=== PATIENT | male | born 1970 | race Caucasian/White ===

== ENCOUNTER 2024-09-15 07:20 | Outpatient (AMB) | payer OTHER, MEDICARE, SELFPAY ==
--- NOTE | 2024-09-15 07:32 | A.OFFVIS_ITS ---
Vital Signs 09/15/24 07:34 Height 5 ft 5 in Weight 173 lb BMI 28.8 BP 98/70 Blood Pressure Location Rt brachial Position Sitting Intake Visit Reasons: ENP-Not use cpap 5yr + like to restart- LVM Intake Note: Patient presents for NORI Allergies amlodipine Allergy (Verified 09/15/24 07:34) Chest Pain Iodinated Contrast Media Allergy (Verified 09/15/24 07:34) Rash Medication List - Last Reconciled 09/15/24 by Eli Hodge MD acetaminophen (Tylenol Extra Strength) 500 mg PO Q4H PRN aspirin 81 mg PO DAILY dulaglutide (Trulicity) mg subcut duloxetine 20 mg PO BID empagliflozin (Jardiance) 25 mg PO DAILY gabapentin 800 mg PO TID hydrochlorothiazide 25 mg PO DAILY lisinopril 40 mg PO DAILY omega-3 fatty acids 1,000 mg PO BID HPI Comments Details: 53y/o comes for sleep evaluation . Main complaints-snoring, difficulty sleeping Sleep questionnaire- Difficulty falling asleep-yes Difficulty staying asleep-yes Number of arousals-4 Snoring-yes Witnessed apneas-no Gasping arousals-yes Nocturia-no GERD-no Vivid dreams-no Acting out dreams no Abnormal behavior in sleep-no ABnormal movements in sleep-yes Morning headaches-no Excessive daytime sleepiness-yes Daytime naps- yes restless legs- yes Hallucinations- no sleep paralysis- /no Drop attacks- /no Sleep study-yes more than 10 years ago Results AHI O2 CPAP no Sleep Hygiene- Sleep time-11pm Wake time -multiple arousals 7am coffee/stimulant use-2 Phone Electronics use-frequent Exercise- no Bedroom comfort- yes [facility] Medical History (Updated 09/15/24 @ 07:52 by Eli Hodge MD) Restless legs syndrome (RLS) Hypersomnia Snoring Severe obesity (BMI 35.0-35.9 with comorbidity) NORI (obstructive sleep apnea) Lumbosacral pain, chronic Hypertension GERD (gastroesophageal reflux disease) Type 2 diabetes mellitus Depression Carpal tunnel syndrome Chondral defect of left tibial plateau Cervical myelopathy Surgical History H/O esophagogastroduodenoscopy H/O cervical discectomy H/O colonoscopy Family History Maternal Grandmother CAD (coronary artery disease) Paternal Grandfather CAD (coronary artery disease) Physical Exam Vital Signs: Last Vital Signs BP 98/70 09/15/24 07:34 BMI result Body Mass Index 28.8 Const General: cooperative, healthy appearing, comfortable and no acute distress Nutritional Appearance: overweight Orientation/consciousness: patient oriented x3 Eyes Pupils: Equal, round and reactive pupils present Neuro Other: Mallampatti grade 4 General: patient oriented x3, tone normal, moves all extremities and no focal motor deficits Cranial nerves: Yes Facial sensation intact/muscles of mastication intact, Yes Equal, round and reactive pupils present, Yes Bilaterally intact EOM present, Yes Nystagmus not present, Yes Normal facial strength present and Yes Midline tongue present Cognition (Neuro): normal cognition Gait exam (Neuro): Antalgic gait present Motor exam (neuro): 5/5 motor strength present throughout and Normal motor muscle tone present throughout Deep tendon reflexes (DTR's): Right triceps reflex intensity grade: 2+, Left triceps reflex intensity grade: 2+, Rt Biceps (C5, C6): 2+, Left biceps reflex intensity grade: 2+, Right brachioradialis reflex intensity grade: 2+, Left brachioradialis reflex intensity grade: 2+, Right patellar reflex intensity grade: 2+ and Left patellar reflex intensity grade: 2+ Assessment & Plan Assessment & Plan (1) Snoring: Code(s): R06.83 - Snoring Category: Medical (2) Hypersomnia: Code(s): G47.10 - Hypersomnia, unspecified Category: Medical (3) Restless legs syndrome (RLS): Code(s): G25.81 - Restless legs syndrome Category: Medical Plan I will reevaluate him with a sleep study for possibel sleep apnea and periodic limb movement disorder CBC CMP VIT B12 TSH ferritin levels Orders: Orders RT PSG in-lab sleep study Today G2 - Restless legs syndrome, G47.10 - Hypersomnia, unspecified, R06.83 - Snoring TSH reflex Free T4 Today G2 - Restless legs syndrome Vitamin B12 and Folate Today - Restless legs syndrome Ferritin Today G2 - Restless legs syndrome Vitamin D 25-OH (D2 and D3) Today G25.81 - Restless legs syndrome Comprehensive Met. Panel Today G2.81 - Restless legs syndrome Complete Blood Count Auto Diff Today G25.81 - Restless legs syndrome Coding Level of Care Code New Pt Level 4 (04744) Complex EM visit Add On G2211 Diagnoses Snoring R06.83 Hypersomnia G47.10 Restless legs syndrome (RLS) G25.81 [place] Sleepiness Scale Questions Sitting and reading: slight chance of dozing Watching TV: moderate chance of dozing Sitting inactive in a theater, movie etc.: moderate chance of dozing As a passenger in a car for an hour without break: high chance of dozing Lying down in the afternoon when circumstances permit: high chance of dozing Sitting and talking to someone: would never doze Sitting quietly after lunch without alcohol: slight chance of dozing In a car, while stopped for a few minutes in the traffic: would never doze ESS < 10: normal, ESS > 12: pathologic: 12
[2024-09-15 07:34] VITALS: BP 98/70; BMI 28.8
== END 2024-09-15 07:59 | disposition home or self-care (01) ==
PROVIDERS: PCP Family Medicine; Visit Provider Psychiatry & Neurology Neurology
DX: R06.83 Snoring (principal); G47.10 Hypersomnia, unspecified; G25.81 Restless legs syndrome
CPT/HCPCS: 99204

== ENCOUNTER → 2024-09-15 07:20 | Outpatient (BNVA) | payer OTHER, MEDICARE, SELFPAY | PROVIDERS: PCP Family Medicine; Visit Provider Psychiatry & Neurology Neurology ==

== ENCOUNTER → 2024-10-10 20:30 | Outpatient (REF) | payer OTHER, MEDICARE, SELFPAY | LOC: HO.SL 20:30 | PROVIDERS: PCP Family Medicine; Visit Provider Psychiatry & Neurology Neurology | DX: G25.81 Restless legs syndrome (principal); G47.10 Hypersomnia, unspecified; R06.83 Snoring | CPT/HCPCS: 95810 ==

== ENCOUNTER → 2024-10-10 21:18 | Outpatient (BNV) | payer OTHER, MEDICARE, SELFPAY | PROVIDERS: PCP Family Medicine; Visit Provider Psychiatry & Neurology Neurology | DX: G47.10 Hypersomnia, unspecified (principal); R06.83 Snoring | CPT/HCPCS: 95810 ==

== ENCOUNTER 2024-12-19 08:48 | Outpatient (AMB) | payer OTHER, MEDICARE, SELFPAY ==
--- NOTE | 2024-12-19 08:59 | MHC.OFFVIS ---
Vital Signs 12/19/24 09:01 Height 5 ft 5 in Weight 169 lb BMI 28.1 BP 110/80 Blood Pressure Location Lt brachial Position Sitting Pulse 63 Pulse Source Pulse Oximeter Pulse Oximetry (%) 96 Oxygen Delivery Method Room Air Intake Visit Reasons: follow up Sleep Intake Note: Patient presents for a 3 mo fu for sleep disorder. [employer] Crewmember Required: Yes [employer] Crewmember Language: [employer] Operator Services: [employer] Crewmember Present [employer] Crewmember Name: Cezar [id number] Accompanied by: Spouse Allergies amlodipine Allergy (Verified 12/19/24 09:00) Chest Pain Iodinated Contrast Media Allergy (Verified 12/19/24 09:00) Rash Medication List - Last Reconciled 12/19/24 by Juanito Beltran PA-C acetaminophen (Tylenol Extra Strength) 500 mg PO Q4H PRN aspirin 81 mg PO DAILY dulaglutide (Trulicity) mg subcut duloxetine 20 mg PO BID empagliflozin (Jardiance) 25 mg PO DAILY gabapentin 800 mg PO TID hydrochlorothiazide 25 mg PO DAILY lisinopril 40 mg PO DAILY omega-3 fatty acids 1,000 mg PO BID HPI Comments Details: 54 y/o male comes for sleep evaluation. He goes to bed at 10pm, gets up at 3am for the bathroom, and gets up at 5am for the day. 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. R. arm goes numb at night only. He c/o snoring, difficulty with sleep and excessive daytime sleepiness. RLS: He has pain bilateral in knee, limps when walking He continues to have bilateral numbness in the feet and pain, all the time, when walking sitting, getting up. Denies tingling, radiating sensations. [facility] labs - were all normal. He had 3 episodes of syncope in Oct 2024 around noon, he was having a bowel movement,and collapsed for < 5min on each occasion. He states he was nauseas, no vomiting, did not bit his tongue, no vision loss or urinary incontinence, he was sweating and taken to [facility] by ambulance. EEG was done at [facility], no seizure activity. He denies family h/o seizures. He is not driving. He says his mood is good, he eats well and goes to sleep on time and has minimal stress as well as avoids triggers. He says his memory is okay, but his has to remind him of daily tasks, and he has VNA visits. [facility] Medical History Restless legs syndrome (RLS) Hypersomnia Snoring Severe obesity (BMI 35.0-35.9 with comorbidity) NORI (obstructive sleep apnea) Lumbosacral pain, chronic Hypertension GERD (gastroesophageal reflux disease) Type 2 diabetes mellitus Depression Carpal tunnel syndrome Chondral defect of left tibial plateau Cervical myelopathy Surgical History H/O esophagogastroduodenoscopy H/O cervical discectomy H/O colonoscopy Family History Maternal Grandmother CAD (coronary artery disease) Paternal Grandfather CAD (coronary artery disease) Review of Systems Const All systems reviewed & are unremarkable except as noted in HPI and below Physical Exam Vital Signs: Last Vital Signs Pulse 63 12/19/24 09:01 BP 110/80 12/19/24 09:01 Pulse Ox 96 12/19/24 09:01 Oxygen Delivery Method Room Air 12/19/24 09:01 BMI result Body Mass Index 28.1 Const General: cooperative, comfortable and no acute distress Nutritional Appearance: overweight Orientation/consciousness: patient oriented x3 HEENT Face and sinus: Yes normal facial exam and Yes face symmetric Eyes Pupils: Equal, round and reactive pupils present Neck Neck: Yes other (ROM is limited on Extension and Flexion and Rotation l/r) Resp Effort & Inspection: normal respiratory effort and able to speak in complete sentences Neuro Other: Mallampatti grade 4 General: patient oriented x3, tone normal, moves all extremities and no focal motor deficits Cranial nerves: Yes Facial sensation intact/muscles of mastication intact, Yes Equal, round and reactive pupils present, Yes Normal accommodation reflex present, Yes Bilaterally intact EOM present, Yes Nystagmus not present, Yes Normal facial strength present, Yes Midline tongue present and Yes Other cranial nerve findings present (has pain on shoulder shrug) Cognition (Neuro): normal cognition Gait exam (Neuro): Antalgic gait present Motor exam (neuro): Normal motor muscle tone present throughout and Abnormal motor strength present (4/5 bilaterally LE) Deep tendon reflexes (DTR's): Right triceps reflex intensity grade: 2+, Left triceps reflex intensity grade: 2+, Rt Biceps (C5, C6): 2+, Left biceps reflex intensity grade: 2+, Right brachioradialis reflex intensity grade: 2+, Left brachioradialis reflex intensity grade: 2+, Right patellar reflex intensity grade: 2+ and Left patellar reflex intensity grade: 2+ Psych Appearance: grossly normal Mental Status: mental status grossly normal Speech and movement: Normal speech and movement present Affect: normal affect Insight: Good insight present (Psych) Judgement: Good judgement present (Psych) Results Reviewed Results Reviewed: Labs [facility] Surgical note [facility] anterior cervical discectomy 09/19 2020 C2/C3 interbody device fusion ED note : 11/06/2024 - dizziness Troponins 11, EKG No ST - T wave changes, most likely vasovagal syncope. Assessment & Plan Assessment & Plan (1) Snoring: Code(s): R06.83 - Snoring Category: Medical (2) Hypersomnia: Code(s): G47.10 - Hypersomnia, unspecified Category: Medical (3) Restless legs syndrome (RLS): Code(s): G25.81 - Restless legs syndrome Category: Medical (4) Bilateral numbness and tingling of arms and legs: Code(s): R20.0 - Anesthesia of skin; R20.2 - Paresthesia of skin Category: Medical (5) Radiculopathy affecting upper extremity: Code(s): M54.10 - Radiculopathy, site unspecified Category: Medical Plan Normal HST, 0 PLMDs, discussed PSG and patient education provided for sleep hygiene and seizure precautions. Sleep Hygiene: Sleep in a dark room, no devices in bed, fluids should be limited two hours prior to sleep, limit caffeine after 4pm. May read and use redlight therapy as needed. Anxiety? stress- eating meals, sleeping on time, and low intenstitiy exercises. Bilateral numbness in arms: and R. Leg EMG evaluate pinched nerves, radiculopathy? Neuropathy? Restless Leg Syndrome/ Primary Leg movement disorder: PSG is normal not significant for RLS/ PLMD. Syncope? LOC ? EEG: Keppra? in future after evaluation with EEG. Will f/u with records from [facility] : CBC CMP VIT B12 TSH ferritin levels / surgical notes X3 and EEG report from ED. Avoid triggers, get a good night of 8 hours of sleep, eat a well balanced diet, and walking daily or exercise as tolerable. Orders: Orders EEG electroencephalogram Today R40.20 - Unspecified coma, R55 - Syncope and collapse NE electromyogram (EMG) Today R20.0 - Anesthesia of skin, R20.2 - Paresthesia of skin Coding Level of Care Code New Pt Level 4 (26719) Diagnoses Snoring R06.83 Hypersomnia G47.10 Restless legs syndrome (RLS) G25.81 Bilateral numbness and tingling of arms and legs R20.0; R20.2 Radiculopathy affecting upper extremity M54.10
[2024-12-19 09:01] VITALS: BP 110/80; PULSE 63; O2SAT 96; BMI 28.1
--- OUTSIDE RECORDS SUMMARY | 2024-12-19 13:05 | XMS_ITS | Clinical Summary ---
Author Organization [facility] Address [address] [place] [address] Care Team Providers Care Rental Representative Name Role Phone Unavailable Primary Care Provider Unavailabl e Social History Tobacco Use Types Packs/Day Years Used Date Smoking Tobacco: Never Assessed Sex and Gender Information Value Date Recorded Sex Assigned at Not on file Gender Identity Not on file Sexual Orientation Not on file Plan of Treatment Health Maintenance Due Date Last Done Comments DTaP,Tdap,and Td Vaccines (1 - Tdap) 1991 Hepatitis B Vaccines (1 of 3 - 19+ 3-dose series) 1991 Cholesterol Screening (Lipid Panel) 10/26/2022 Colorectal Cancer Screening: Colonoscopy 10/26/2022 Depression Screening 10/26/2022 HIV Screening 10/26/2022 Hepatitis C Screening 10/26/2022 Social Influencers of Health Screening 10/26/2022 Zoster Vaccines (1 of 2) 2022 COVID-19 Vaccine (2023-2 5 season) 2024 Influenza Vaccine (#1) 2024 HIB Vaccines Aged Out No longer eligi ble based on patient's age to complete this topic HPV Vaccines Aged Out No longer eligi ble based on patient's age to complete this topic Hepatitis A Vaccines Aged Out No long er eligible based on patient's age to complete this topic IPV Vaccines Aged Out No longer eligi ble based on patient's age to complete this topic MMR Vaccines Aged Out No longer eligi ble based on patient's age to complete this topic Meningococcal ACWY Vaccine Aged Out N o longer eligible based on patient's age to complete this topic Pneumococcal Vaccine: Pediat rics (0 to 5 Years) and At-Risk Patients (6 to 64 Years) Aged Out No longer eligible b ased on patient's age to complete this topic RSV Immunization Patients Un donell 20 months Aged Out No longer eligible b ased on patient's age to complete this topic Varicella Vaccines Aged Out No longer eligible based on patient's age to complete this topic
--- OUTSIDE RECORDS SUMMARY | 2024-12-19 13:05 | XMS_ITS ---
Author Name [facility] Organization Unknown History of Medication Use Medication Directions Dispensed Refills Start Date End Date Stat us duloxetine 60 mg capsule,delayed release a ctive lisinopril 40 mg tablet active peg-electrolyte solution 420 gram oral solution 08/04/2024 co mpleted Allergies Allergen Reaction Severity Comment Documented Date Source Statu s AMLODIPINE ENS_AONECT Problems Problem Status Onset Date Problem Type Date of Resoluti on Source Osteoarthritis of left knee joint active 2024-05-05 ProblemAct ENS_AONECT
== END 2024-12-19 09:48 | disposition home or self-care (01) ==
PROVIDERS: PCP Family Medicine; Visit Provider Physician Assistant Medical
DX: R06.83 Snoring (principal); G47.10 Hypersomnia, unspecified; G25.81 Restless legs syndrome; R20.0 Anesthesia of skin; R20.2 Paresthesia of skin; M54.10 Radiculopathy, site unspecified
CPT/HCPCS: 99204

== ENCOUNTER → 2024-12-19 08:48 | Outpatient (BNVA) | payer OTHER, MEDICARE, SELFPAY | PROVIDERS: PCP Family Medicine; Visit Provider Physician Assistant Medical | DX: G25.81 Restless legs syndrome (principal); G47.10 Hypersomnia, unspecified; R06.83 Snoring ==

== ENCOUNTER 2025-03-22 13:28 | Outpatient (REF) | payer OTHER, MEDICARE, SELFPAY ==
--- NOTE | 2025-03-22 13:32 | EMG_ITS ---
Chief complaint: Numbness on both hands and feet. History of diabetes. History of past cervical surgeries x3. Reason for referral: Evaluate for neuropathy Referred by: Juanito SOSA Procedure done: Bilateral upper extremities and lower extremities NCS/EMG Precautions and/or limitations: Previous cervical surgeries Georgian speaking, seen with deaf interpreter. The limb temperature was monitored continuously and remained between 32-36 degrees C during the performance of the NCS. Ulnar motor NCS was performed with moderate elbow flexion between 70-90 degrees, with across-elbow distance of 10 cm. Nerve Conduction Studies Anti Sensory Summary Table ?Stim Site NR Onset (ms) Norm Onset (ms) Peak (ms) Norm Peak (ms) O-P Amp (?V) Norm O-P Amp Site1 Site2 Delta-0 (ms) Dist (cm) Adan (m/s) Norm Adan (m/s) Left Median Anti Sensory (2nd Digit) Wrist ? 2.9 3.7 <3.6 21.2 >10 Wrist 2nd Digit 2.9 14.0 48 Right Median Anti Sensory (2nd Digit) Wrist ? 3.1 3.8 <3.6 8.4 >10 Wrist 2nd Digit 3.1 14.0 45 Right Radial Anti Sensory (Thumb) Forearm ? 1.5 2.0 <3.1 12.9 Forearm Thumb 1.5 0.0 Left Sural Anti Sensory (Lat Mall) Calf ? 2.9 3.6 <4.0 3.5 >5.0 Calf Lat Mall 2.9 14.0 48 Right Sural Anti Sensory (Lat Mall) Calf ? 3.7 4.3 <4.0 1.0 >5.0 Calf Lat Mall 3.7 14.0 38 Left Ulnar Anti Sensory (5th Digit) Wrist ? 2.4 3.2 <3.7 8.3 >15.0 Wrist 5th Digit 2.4 14.0 58 Right Ulnar Anti Sensory (5th Digit) Wrist NR <3.7 >15.0 Wrist 5th Digit 14.0 Motor Summary Table ?Stim Site NR Onset (ms) Norm Onset (ms) O-P Amp (mV) Norm O-P Amp iAmp (mV) Amp (1st) (%) Site1 Site2 Delta-0 (ms) Dist (cm) Adan (m/s) Norm Adan (m/s) Left Median Motor (Abd Poll Brev) Wrist ? 4.1 <3.9 11.8 >4.5 13.5 100.0 Elbow Wrist 3.9 19.5 50 >45 Elbow ? 8.0 11.8 13.3 100.0 Right Median Motor (Abd Poll Brev) Wrist ? 4.3 <3.9 10.5 >4.5 12.8 100.0 Elbow Wrist 4.1 19.0 46 >45 Elbow ? 8.4 10.0 12.3 95.2 Right Peroneal Motor (Ext Dig Brev) Ankle ? 6.0 <4.0 0.8 >2.5 1.0 100.0 Ankle Ext Dig Brev 6.0 0.0 B Fib ? 11.4 5.2 6.6 650.0 B Fib Ankle 5.4 29.0 54 >40 Poplt ? 12.4 5.2 6.9 650.0 Poplt B Fib 1.0 4.5 45 >40 Left Tibial Motor (Abd Brody Brev) Ankle ? 4.4 <5 9.4 >2.5 11.9 100.0 Ankle Abd Brody Brev 4.4 0.0 Knee ? 13.3 8.4 10.3 89.4 Knee Ankle 8.9 36.0 40 >40 Right Tibial Motor (Abd Broyd Brev) Ankle ? 4.5 <5 12.2 >2.5 16.2 100.0 Ankle Abd Brody Brev 4.5 0.0 Knee ? 12.6 7.8 9.2 63.9 Knee Ankle 8.1 36.5 45 >40 Left Ulnar Motor (Abd Dig Minimi) Wrist ? 3.1 <3.0 8.6 >5 10.5 100.0 B Elbow Wrist 3.6 19.0 53 >45 B Elbow ? 6.7 8.1 9.7 94.2 A Elbow B Elbow 1.7 10.0 59 >45 A Elbow ? 8.4 7.2 8.6 83.7 Right Ulnar Motor (Abd Dig Minimi) Wrist ? 3.2 <3.0 9.5 >5 11.5 100.0 B Elbow Wrist 3.6 19.0 53 >45 B Elbow ? 6.8 8.7 10.0 91.6 A Elbow B Elbow 1.3 10.0 77 >45 A Elbow ? 8.1 8.4 9.6 88.4 EMG ?Side Muscle Nerve Root Ins Act Fibs Psw Amp Dur Poly Recrt Int Pat Comment Right 1stDorInt Ulnar C8-T1 Nml Nml Nml Nml Nml 0 Nml Complete Right FlexCarRad Median C6-7 Nml Nml Nml Nml Nml 0 Nml Complete Right Biceps Musculocut C5-6 Nml Nml Nml Nml Nml 0 Nml Complete Right Triceps Radial C6-7-8 Nml Nml Nml Nml Nml 0 Nml Complete Right Deltoid Axillary C5-6 Nml Nml Nml Nml Nml 0 Nml Complete Left 1stDorInt Ulnar C8-T1 Nml Nml Nml Nml Nml 0 Nml Complete Left FlexCarRad Median C6-7 Nml Nml Nml Nml Nml 0 Nml Complete Left Biceps Musculocut C5-6 Nml Nml Nml Nml Nml 0 Nml Complete Left Triceps Radial C6-7-8 Nml Nml Nml Nml Nml 0 Nml Complete Left Deltoid Axillary C5-6 Nml Nml Nml Nml Nml 0 Nml Complete Right AbdHallucis MedPlantar S1-2 Incr 1+ 1+ Nml Nml 0 Nml Complete Right AntTibialis Dp Br Peron L4-5 Nml Nml Nml Nml Nml 0 Nml Complete Right PostTibialis Tibial L5, S1 Nml Nml Nml Nml Nml 0 Nml Complete Right MedGastroc Tibial S1-2 Incr 1+ 1+ Nml Nml 0 Nml Complete Right VastusMed Femoral L2-4 Nml Nml Nml Nml Nml 0 Nml Complete Left AbdHallucis MedPlantar S1-2 Incr 1+ 1+ Nml Nml 0 Nml Complete Left AntTibialis Dp Br Peron L4-5 Nml Nml Nml Nml Nml 0 Nml Complete Left PostTibialis Tibial L5, S1 Nml Nml Nml Nml Nml 0 Nml Complete Left MedGastroc Tibial S1-2 Incr 1+ 1+ Nml Nml 0 Nml Complete Left VastusMed Femoral L2-4 Nml Nml Nml Nml Nml 0 Nml Complete Paraspinal EMG ?Side Muscle Nerve Root Ins Act Fibs Psw Comment Right Lumbar Upper Rami Nml Nml Nml Right Lumbar Mid Rami Nml Nml Nml Right Lumbar Lower Rami Nml Nml Nml Left Lumbar Upper Rami Nml Nml Nml Left Lumbar Mid Rami Nml Nml Nml Left Lumbar Lower Rami Nml Nml Nml FINDINGS: Bilateral median motor nerve showed prolonged distal latency, normal amplitude and normal conduction velocity. Bilateral ulnar motor nerve showed prolonged distal latency, normal amplitude and normal conduction velocity. Right peroneal nerve showed small amplitude distally, with prolonged distal latency. No conduction block across fibular neck. Right median sensory nerve showed prolonged peak latency and small amplitude. Left median sensory nerve showed prolonged peak latency. Right ulnar sensory nerve showed absent response. Left ulnar sensory nerve showed normal peak latency but small amplitude. Right sural nerve showed prolonged peak latencies and small amplitude. Left sural nerve showed small amplitude. All other nerves tested were within normal. Concentric needle EMG was performed in selected muscles of the bilateral upper and lower extremity, and lumbar paraspinals. Study revealed signs of electric abnormalities as shown in the table above. Bilateral mg and AH showed increased insertional activity, PSWs and fibrillations. No denervation seen on lumbar paraspinals. IMPRESSION: 1. This is an abnormal study. 2. 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 3. There is no electrodiagnostic evidence for brachial plexopathy, cervical radiculopathy, lumbosacral plexopathy, or lumbar radiculopathy. Thank you for your kind referral. Sakina Zaragoza MD, OSVALDO Board Certified, [place] [employer] and Rehabilitation (ABPMR) Board Certified, [place] Board [employer] Electrodiagnostic Medicine (ABEM) CODIN 28671 x 4 MTDD
--- OUTSIDE RECORDS SUMMARY | 2025-03-22 14:46 | XMS_ITS | Clinical Summary ---
Author Organization [facility] Address [address] [place] [address] Phone Care Team Providers Care Hardware Installation Coordinator Name Role Phone Physician, No Pcp Primary Care Provider Unavaila ble Allergies Active Allergy Reactions Criticality Noted Date Comments Amlodipine Other 03/07/2025 Iodinated Contrast Media Rash 03/07/2025 Encounters Date Type Department Care Team Description 03/07/2025 8:39 PM EDT - 03/07/2025 9:44 PM EDT Emergency [facility] Emergency [address] [place] [address] Dread Singh MD Chest pain, unspecified type (Primary Dx) Discharge Disposition: Home or Self Care from Last 3 Months Surgical History Surgery Date Site/Laterality Comments NECK SURGERY Medical History Medical History Date Comments Diabetes mellitus (CMS/HCC V24, CMS/HCC V28) Hypertension Arthritis Social History Tobacco Use Types Packs/Day Years Used Date Smoking Tobacco: Never Smokeless Tobacco: Never Tobacco Cessation:Counseling Given: Not Answered Sex and Gender Information Value Date Recorded Sex Assigned at Male 03/07/2025 9:11 PM EDT Legal Sex Male 11:36 PM EST Gender Identity Male 03/07/2025 9:11 PM EDT Sexual Orientation Straight 03/07/2025 9: 11 PM EDT Obstetrics History Last Filed Vital Signs Vital Sign Reading Time Taken Comments Blood Pressure 134/78 03/07/2025 8:49 PM EDT Pulse 62 03/07/2025 8:49 PM EDT Temperature 37 ??C (98.6 ??F) 03/07/2025 8:49 PM EDT Respiratory Rate 22 03/07/2025 8:49 PM EDT Oxygen Saturation 98% 03/07/2025 8:49 PM EDT Inhaled Oxygen Concentration - - Weight 69.2 kg (152 lb 9.6 oz) 03/07/2025 4:31 P M EDT Height 165.1 cm (5' 5 ) 03/07/2025 4:31 PM EDT Body Mass Index 25.39 03/07/2025 4:31 PM EDT Plan of Treatment Health Maintenance Due Date Last Done Comments Diabetes: Annual Foot Exam 1982 Diabetes: Annual Retina Eye Exam 1982 Hepatitis B Vaccines (3 of 3 - 19+ 3-dose series) 06/28/2019 02/28/2019, 12/29/2018 Cholesterol Screening (Lipid Panel) 10/26/2022 Colorectal Cancer Screening: Colonoscopy 10/26/2022 Depression Screening 10/26/2022 HIV Screening 10/26/2022 Hepatitis C Screening 10/26/2022 Medicare Annual Wellness Visit 10/26/2022 Social Influencers of Health Screening 10/26/2022 Pneumococcal Vaccine: 50+ Years (2 of 2 - PCV) 2022 08/08/2019 Zoster Vaccines (1 of 2) 2022 COVID-19 Vaccine (3 - season) 2024 03/29/2021, 03/08/2021 Diabetes: Annual Urine Albumin-Creatinine Ratio (uACR) 03/08/2025 Diabetes: Blood Sugar Control Test (HGBA1C) 03/08/2025 Influenza Vaccine (Season Ended) 2025 10/28/2022, 09/11/2021, 09/06/2020, Additional history exists Diabetes: Annual GFR (Glomerular Filtration Rate) 03/07/2026 03/07/2025 Hypertension/CHF/CAD Annual BMP Blood Test 03/07/2026 03/07/2025 DTaP,Tdap,and Td Vaccines (2 - Td or Tdap) 05/10/2031 05/10/2021 Hepatitis A Vaccines Aged Out 12/29/2018 No long er eligible based on patient's age to complete this topic Pneumococcal Vaccine: Pediatrics (0 to 5 Years) and At-Risk Patients (6 to 64 Years) Aged Out 08/08/2019 No longer eligible based on patient's age to complete this topic HIB Vaccines Aged Out No longer eligi [...] patient's age to complete this topic Meningococcal B Vaccine Aged Out No l onger eligible based on patient's age to complete this topic RSV Immunization Patients Under 20 months Aged Out No longer eligible based on patient's age to complete this topic Varicella Vaccines Aged Out No longer eligible based on patient's age to complete this topic Procedures Procedure Name Priority Date/Time Associated Diagnosis Comments ECG ANNOTATED 03/08/2025 XR CHEST 2 VIEWS STAT 03/07/2025 8:38 PM EDT TROPONIN I HIGH SENSITIVITY STAT 03/07/2025 7:10 PM EDT CBC WITH AUTO DIFFERENTIAL STAT 03/07/2025 4:56 PM EDT B-TYPE NATRIURETIC PEPTIDE STAT 03/07/2025 4:56 PM EDT MAGNESIUM STAT 03/07/2025 4:56 PM EDT LIPASE STAT 03/07/2025 4:56 PM EDT COMPREHENSIVE METABOLIC PANEL STAT 03/07/2025 4:56 PM EDT CBC AND DIFFERENTIAL STAT 03/07/2025 4:56 PM EDT TROPONIN I HIGH SENSITIVITY STAT 03/07/2025 4:56 PM EDT ECG 12-LEAD STAT 03/07/2025 3:59 PM EDT from Last 3 Months Results * ECG-Annotated (03/08/2025) us Provider Onbase MD ECG ORDERABLES Final Result * XR Chest 2 Views (03/07/2025 8:38 PM EDT) Anatomical Region Laterality Modality Body Radiographic Nicolle ging 03/08/2025 8:32 AM EDT Impressions 03/08/2025 8:33 AM EDT Hypoventilatory exam. ??No acute findings. -------- FINAL REPORT -------- Dictated By: Eliu Vazquez Dictated Date: 03/08/2025 08:32 ET Assigned Physician: Eliu Vazquez Reviewed and Electronically Signed By: Eliu Vazquez Signed Date: 03/08/2025 08:33 ET Workstation ID: [id number] Transcribed By: Self Edit Transcribed Date: 03/08/2025 08:32 ET Narrative 03/08/2025 8:33 AM EDT PROCEDURE: PA and lateral radiographs of the chest. HISTORY: chest pain. COMPARISON: 10/09/2021. FINDINGS: Slightly hypoventilatory effort. ??Mild atelectasis at the bases. ??Lungs otherwise clear. ??Cardiomediastinal contours, pulmonary vasculature, and pleural spaces are clear. ??Mild degenerative changes of the spine. ??Cervical spinal fusion hardware. Procedure Note Eliu Vazquez MD - 03/08/2025 PROCEDURE: PA and lateral radiographs of the chest. HISTORY: chest pain. COMPARISON: 10/09/2021. FINDINGS: Slightly hypoventilatory effort. Mild atelectasis at the bases. Lungsotherwise clear. Cardiomediastinal contours, pulmonary vasculature, andpleural spaces are clear. Mild degenerative changes of the spine.Cervical spinal fusion hardware. IMPRESSION: Hypoventilatory exam. No acute findings. -------- FINAL REPORT -------- Dictated By: Eliu Vazquez Dictated Date: 03/08/2025 08:32 ET Assigned Physician: Eliu Vazquez Reviewed and Electronically Signed By: Eliu Vazquez Signed Date: 03/08/2025 08:33 ET Workstation ID: [id number] Transcribed By: Self Edit Transcribed Date: 03/08/2025 08:32 ET rDead Singh MD IMG XR PROCEDURES Final Result * Troponin I high sensitivity (03/07/2025 7:10 PM EDT) Only the most recent of2 resultswithin the time period is included. [facility] High Sensitivity Troponin I 16 <=79 ng/L LAB CHEMISTRY METHOD 03/07/2025 8:31 PM EDT [facility] Blood Venous blood specimen / Unknown Venipuncture / Unknown 03/07/2025 7:10 PM EDT 03/07/2025 8:01 PM EDT [facility] - 03/07/2025 8:31 PM EDT High levels of biotin in samples may falsely decrease hsTroponin values. ??Use caution when interpreting hsTroponin results in patients taking biotin who exhibit renal impairment (eGFR <60) or in patients taking more than 20 mg/day of biotin. Dread Singh MD LAB BLOOD ORDERABLES Final Res ult [facility] [address] [place] [address], * (ABNORMAL) CBC auto differential (03/07/2025 4:56 PM EDT) [facility] WBC 7.5 4.8 - 10.8 K/mcL LAB HEMETOLOGY METHOD 03/07/2025 5:23 PM EDT [facility] RBC 5.30 4.50 - 5.50 M/mcL LAB HEMETOLOGY METHOD 03/07/2025 5:23 PM EDT [facility] Hemoglobin 14.3 13.5 - 17.5 g/dL LAB HEMETOLOGY METHOD 03/07/2025 5:23 PM EDT [facility] Hematocrit 45.8 42.0 - 54.0 % LAB HEMETOLOGY METHOD 03/07/2025 5:23 PM EDT [facility] MCV 87.2 79.0 - 98.0 FL LAB HEMETOLOGY METHOD 03/07/2025 5:23 PM EDT [facility] MCH 27.2 27.0 - 32.0 pcg LAB HEMETOLOGY METHOD 03/07[facility]2025 [facility] MCHC 31.2(L) 32.0 - 37.0 g/dL LAB HEMETOLOGY METHOD 03/07/2025 5:23 PM EDT [facility] RDW 12.7 11.0 - 15.0 % LAB HEMETOLOGY METHOD 03/07/2025 5:23 PM EDT [facility] Platelets 284 130 - 400 K/mcL LAB HEMETOLOGY METHOD 03/07/2025 5:23 [facility] MPV 10.1 7.0 - 11.0 FL LAB HEMETOLOGY METHOD 03/07/2025 5:23 PM [facility] NRBC 0.0 <1.0 % LAB HEMETOLOGY METHOD 03/07/2025 5:23 [facility] NRBC Absolute 0.00 <0.10 K/mcL LAB HEMETOLOGY METHOD 03/07/2025 5:23 PM [facility] Neutrophils Relative 63.8 % LAB HEMETOLOGY METHOD 03/07/2025 5:23 PM [facility] Lymphocytes Relative 26.9 % LAB HEMETOLOGY METHOD 03/07/2025 5:23 PM [facility] Monocytes Relative 7.2 % LAB HEMETOLOGY METHOD 03/07/2025 5:23 PM [facility] Eosinophils Relative 1.6 % LAB HEMETOLOGY METHOD 03/07/2025 5:23 PM [facility] Basophils Relative 0.4 % LAB HEMETOLOGY METHOD 03/07/2025 5:23 PM [facility] Immature Granulocytes Relative 0.1 % LAB HEMETOLOGY METHOD 03/07/2025 5:23 PM EDT [facility] Neutrophils Absolute 4.79 1.50 - 7.00 K/mcL LAB HEMETOLOGY METHOD 03/07/2025 5:23 PM EDT [facility] Lymphocytes Absolute 2.02 1.00 - 5.00 K/mcL LAB HEMETOLOGY METHOD 03/07/2025 5:23 PM EDT [facility] Monocytes Absolute 0.54 0.20 - 1.00 K/mcL LAB HEMETOLOGY METHOD 03/07/2025 5:23 PM EDT [facility] Eosinophils Absolute 0.12 0.00 - 0.50 K/mcL LAB HEMETOLOGY METHOD 03/07/2025 5:23 PM EDT [facility] Basophils Absolute 0.03 0.00 - 0.20 K/mcL LAB HEMETOLOGY METHOD 03/07/2025 5:23 PM EDT [facility] Immature Granulocytes Absolute 0.01 0.00 - 0.03 K/mcL LAB HEMETOLOGY METHOD 03/07/2025 5:23 PM EDT [facility] Blood Venous blood specimen / Unknown Venipuncture / Unknown 03/07/2025 4:56 PM EDT 03/07/2025 5:09 PM EDT us Dread Singh MD LAB BLOOD ORDERABLES Final Res ult [facility] [address] [place] [address], * B-type natriuretic peptide (03/07/2025 4:56 PM EDT) BNP 30 <=100 pcg/mL LAB CHEMISTRY METHOD 03/07/2025 6:09 PM EDT [facility] Blood Venous blood specimen / Unknown Venipuncture / Unknown 03/07/2025 4:56 PM EDT 03/07/2025 5:09 PM EDT us Dread Sinhg MD LAB BLOOD ORDERABLES Final Res ult Performing Organization Address [facility]/ZIP Co de Phone Number [facility] [address] [place] [address], [place] [phone] * Magnesium (03/07/2025 4:56 PM EDT) [facility] Magnesium 2.4 1.9 - 2.6 mg/dL LAB CHEMISTRY METHOD 03/07/2025 6:01 PM EDT [facility] Blood Venous blood specimen / Unknown Venipuncture / Unknown 03/07/2025 4:56 PM EDT 03/07/2025 5:09 PM EDT us Dread Singh MD LAB BLOOD ORDERABLES Final Res ult Performing Organization Address [facility] Co de Phone Number [facility] [address] [place] [address], [place] [phone] * Lipase (03/07/2025 4:56 PM EDT) [facility] Lipase 42 13 - 75 unit/L LAB CHEMISTRY METHOD 03/07/2025 6:01 PM EDT [facility] Blood Venous blood specimen / Unknown Venipuncture / Unknown 03/07/2025 4:56 PM EDT 03/07/2025 5:09 PM EDT us Dread Singh MD LAB BLOOD ORDERABLES Final Res ult Performing Organization Address [facility]/ZIP Co de Phone Number [facility] [address] [place] [address], [place] [phone] * Comprehensive metabolic panel (03/07/2025 4:56 PM EDT) [facility] Sodium 137 133 - 145 mmol/L LAB CHEMISTRY METHOD 03/07/2025 6:01 PM [facility] Potassium 3.8 3.5 - 5.5 mmol/L LAB CHEMISTRY METHOD 03/07/2025 6:01 PM [facility] Chloride 102 96 - 110 mmol/L LAB CHEMISTRY METHOD 03/07/2025 6:01 PM [facility] CO2 32 21 - 32 mmol/L LAB CHEMISTRY METHOD 03/07/2025 6:01 PM [facility] Anion Gap 3 3 - 11 LAB CHEMISTRY METHOD 03/07/2025 6:01 PM [facility] Glucose 86 70 - 100 mg/dL LAB CHEMISTRY METHOD 03/07/2025 6:01 PM [facility] BUN 9 5 - 25 mg/dL LAB CHEMISTRY METHOD 03/07/2025 6:01 PM [facility] Creatinine 0.84 0.70 - 1.30 mg/dL LAB CHEMISTRY METHOD 03/07/2025 6:01 PM [facility] eGFR 105 >=60 mL/min/1. 73m2 LAB CHEMISTRY METHOD 03/07/2025 6:01 PM [facility] Comment:Calculation based on the??Chronic Kidney Disease Epidemiology Collaboration (CKD-EPI) equation refit??without adjustment for race. BUN/Creatinine Ratio 10.7 LAB CHEMISTRY METHOD 03/07/2025 6:01 PM [facility] Calcium 9.3 8.5 - 10.5 mg/dL LAB CHEMISTRY METHOD 03/07/2025 6:01 PM [facility] AST (SGOT) 25 10 - 42 unit/L LAB CHEMISTRY METHOD 03/07/2025 6:01 PM [facility] ALT (SGPT) 34 10 - 60 unit/L LAB CHEMISTRY METHOD 03/07/2025 6:01 PM [facility] Alkaline Phosphatase 65 42 - 121 unit/L LAB CHEMISTRY METHOD 03/07/2025 6:01 PM EDT [facility] Total Protein 7.6 6.0 - 8.0 g/dL LAB CHEMISTRY METHOD 03/07/2025 6:01 PM EDT [facility] Albumin 4.0 3.2 - 5.0 g/dL LAB CHEMISTRY METHOD 03/07/2025 6:01 PM EDT [facility] Total Bilirubin 0.6 0.0 - 1.4 mg/dL LAB CHEMISTRY METHOD 03/07/2025 6:01 PM EDT [facility] Blood Venous blood specimen / Unknown Venipuncture / Unknown 03/07/2025 4:56 PM EDT 03/07/2025 5:09 PM EDT us Dread Singh MD LAB BLOOD ORDERABLES Final Res ult Performing Organization Address City/[facility] Hospital/ZIP Co de Phone Number [facility] [address] [place] [address], [place] [phone] * ECG 12 lead (03/07/2025 3:59 PM EDT) Ventricular Rate ECG 64 BPM GEM[facility] Atrial Rate 64 BPM GEMUSE P-R Interval 184 ms GEMUSE QRS Duration 98 ms GEMUSE Q-T Interval 418 ms GEMUSE QTc 431 ms GEMUSE P Wave Milner 47 degrees GEMUSE R Milner -28 degrees GEMUSE T Milner 16 degrees GEMUSE ECG Interpretation Normal sinus rhythm Normal ECG When compared with ECG of 07-NOV-2004 12:25, Vent. rate has decreased BY ??51 BPM Confirmed by Chani CARRILLO JOHN ([id number]) on 03/08/2025 5:33:41 PM GEMUSE 03/07/2025 3:59 PM EDT 03/08/2025 5:33 PM EDT us Dread Singh MD ECG ORDERABLES Final Result Performing Organization Address City/[facility]/ZIP Co de Phone Number GEM[facility] from Last 3 Months Insurance MEDICARE [facility] Care Teams Hardware Installation Coordinator Relationship Specialty Start Date End Date Physician, No Pcp PCP - General 03/07/25
== END 2025-03-22 13:29 | disposition home or self-care (01) ==
LOC: HO.NEURO 13:28
PROVIDERS: PCP Family Medicine; Visit Provider Physician Assistant Medical
DX: R20.0 Anesthesia of skin (principal); R20.2 Paresthesia of skin
CPT/HCPCS: 95886; 95913

== ENCOUNTER → 2025-03-22 13:32 | Outpatient (BNV) | payer OTHER, MEDICARE, SELFPAY | PROVIDERS: PCP Family Medicine; Visit Provider Physical Medicine & Rehabilitation | DX: E11.21 Type 2 diabetes mellitus with diabetic nephropathy (principal) | CPT/HCPCS: 95886; 95913 ==

== ENCOUNTER 2025-04-06 08:06 | Outpatient (REF) | payer OTHER, MEDICARE, SELFPAY ==
--- NOTE | 2025-04-06 08:09 | EEG_ITS ---
FINDINGS: This is a 16-channel EEG with an EKG lead. The patient is reported awake during the tracing. Background EEG rhythm is about 10 hertz, 5 to 20 microvolt posteriorly lower amplitude, fast anteriorly. Photic stimulation does not produce any significant abnormality. Hyperventilation is not performed. Cardiac lead does not reveal any significant abnormality. No definite sharp wave spikes or paroxysmal tendency noted. Cardiac lead did not reveal any significant abnormality. IMPRESSION: No significant abnormality noted on this EEG. If seizure disorder is strongly suspected, prolonged EEG or 48-hour ambulatory EEG is recommended. MD SARAH Bowens/EFRAÍN / [phone]
--- OUTSIDE RECORDS SUMMARY | 2025-04-06 08:11 | XMS_ITS | Clinical Summary ---
Author Organization [facility] Address [address] [place] [address] Phone Care Team Providers Care Monitor And Storage Bin Tender Name Role Phone Physician, No Pcp Primary Care Provider Unavaila ble Allergies Active Allergy Reactions Criticality Noted Date Comments Amlodipine Other 03/07/2025 Iodinated Contrast Media Rash 03/07/2025 Encounters Date Type Department Care Team Description 03/07/2025 8:39 PM EDT - 03/07/2025 9:44 PM EDT Emergency [facility] Emergency [address] [place] [address] Dread Singh MD Chest pain, [...] Signed Date: 03/08/2025 08:33 ET Workstation ID: [id number] Transcribed By: Self Edit Transcribed Date: 03/08/2025 [...] Signed Date: 03/08/2025 08:33 ET Workstation ID: [id number] Transcribed By: Self Edit Transcribed Date: 03/08/2025 08:32 ET Dread Singh MD IMG XR PROCEDURES Final Result * Troponin I high sensitivity (03/07/2025 7:10 PM EDT) Only the most recent of2 resultswithin the time period is included. [facility] High Sensitivity Troponin I 16 <=79 ng/L LAB CHEMISTRY METHOD 03/07/2025 8:31 PM EDT [facility] Blood Venous blood specimen / Unknown Venipuncture / Unknown 03/07/2025 7:10 PM EDT 03/07/2025 8:01 PM EDT [facility] - 03/07/2025 8:31 PM EDT High levels of biotin in samples may falsely decrease hsTroponin values. ??Use caution when interpreting hsTroponin results in patients taking biotin who exhibit renal impairment (eGFR <60) or in patients taking more than 20 mg/day of biotin. Dread Singh MD LAB BLOOD ORDERABLES Final Res ult [facility] [address] [place] [address], * (ABNORMAL) CBC auto differential (03/07/2025 4:56 PM EDT) [facility] WBC 7.5 4.8 - 10.8 K/mcL LAB HEMETOLOGY METHOD 03/07/2025 5:23 PM EDT [facility] RBC 5.30 4.50 - 5.50 M/mcL LAB HEMETOLOGY METHOD 03/07/2025 5:23 PM EDT [facility] Hemoglobin 14.3 13.5 - 17.5 g/dL LAB HEMETOLOGY METHOD 03/07/2025 5:23 PM EDT [facility] Hematocrit 45.8 42.0 - 54.0 % LAB HEMETOLOGY METHOD 03/07/2025 5:23 PM EDT [facility] MCV 87.2 79.0 - 98.0 FL LAB HEMETOLOGY METHOD 03/07/2025 5:23 PM EDT [facility] MCH 27.2 27.0 - 32.0 pcg LAB [facility]EMETOLOGY [facility] MCHC 31.2(L) 32.0 - 37.0 g/dL LAB HEMETOLOGY METHOD 03/07/2025 5:23 PM EDT [facility] RDW 12.7 11.0 - 15.0 % LAB HEMETOLOGY METHOD 03/07/2025 5:23 PM EDT [facility] Platelets 284 130 - 400 K/mcL LAB HEMETOLOGY METHOD [facility]/07[facility]2025 5[facility] MPV 10.1 7.0 - 11.0 FL LAB HEMETOLOGY METHOD 03/07/2025 5:[facility] NRBC 0.0 <1.0 % LAB HEMETOLOGY METHOD 03/07/2025 5:[facility] NRBC Absolute 0.00 <0.10 K/mcL LAB HEMETOLOGY METHOD 03/07/2025 5:23 [facility] Neutrophils Relative 63.8 % LAB HEMETOLOGY METHOD 03/07/2025 5:23 PM [facility] Lymphocytes Relative 26.9 % LAB HEMETOLOGY METHOD 03/07/2025 5:23 [facility] Monocytes Relative 7.2 % LAB HEMETOLOGY METHOD 03/07/2025 5:23 [facility] Eosinophils Relative 1.6 % LAB HEMETOLOGY METHOD 03/07/2025 5:23 [facility] Basophils Relative 0.4 % LAB HEMETOLOGY METHOD 03/07/2025 5:23 PM [facility] Immature Granulocytes Relative 0.1 % LAB HEMETOLOGY METHOD 03/07/2025 5:23 PM EDT [facility] Neutrophils Absolute 4.79 1.50 - 7.00 K/mcL LAB HEMETOLOGY METHOD 03/07/2025 5:23 PM EDT [facility] Lymphocytes Absolute 2.02 1.00 - 5.00 K/mcL LAB HEMETOLOGY METHOD 03/07/2025 5:23 PM EDT [facility] Monocytes Absolute 0.54 0.20 - 1.00 K/mcL LAB HEMETOLOGY METHOD 03/07/2025 5:23 PM EDT [facility] Eosinophils Absolute 0.12 0.00 - 0.50 K/mcL LAB HEMETOLOGY METHOD 03/07/2025 5:23 PM EDT [facility] Basophils Absolute 0.03 0.00 - 0.20 K/mcL LAB HEMETOLOGY METHOD 03/07/2025 5:23 PM EDT [facility] Immature Granulocytes Absolute 0.01 0.00 - 0.03 K/mcL LAB HEMETOLOGY METHOD 03/07/2025 5:23 PM EDT [facility] Blood Venous blood specimen / Unknown Venipuncture / Unknown 03/07/2025 4:56 PM EDT 03/07/2025 5:09 PM EDT us Dread Singh MD LAB BLOOD ORDERABLES Final Res ult [facility] [address] [place] [address], * B-type natriuretic peptide (03/07/2025 4:56 PM EDT) BNP 30 <=100 pcg/mL LAB CHEMISTRY METHOD 03/07/2025 6:09 PM EDT [facility] Blood Venous blood specimen / Unknown Venipuncture / Unknown 03/07/2025 4:56 PM EDT 03/07/2025 5:09 PM EDT us Dread Singh MD LAB BLOOD ORDERABLES Final Res ult Performing Organization Address [facility]/ZIP Co de Phone Number [facility] [address] [place] [address], [place] [phone] * Magnesium (03/07/2025 4:56 PM EDT) [facility] Magnesium 2.4 1.9 - 2.6 mg/dL LAB CHEMISTRY METHOD 03/07/2025 6:01 PM EDT [facility] Blood Venous blood specimen / Unknown Venipuncture / Unknown 03/07/2025 4:56 PM EDT 03/07/2025 5:09 PM EDT us Dread Singh MD LAB BLOOD ORDERABLES Final Res ult Performing Organization Address [facility] Co de Phone Number [facility] [address] [place] [address], [place] [phone] * Lipase (03/07/2025 4:56 PM EDT) [facility] Lipase 42 13 - 75 unit/L LAB CHEMISTRY METHOD 03/07/2025 6:01 PM EDT [facility] Blood Venous blood specimen / Unknown Venipuncture / Unknown 03/07/2025 4:56 PM EDT 03/07/2025 5:09 PM EDT us Dread Singh MD LAB BLOOD ORDERABLES Final Res ult Performing Organization Address [facility]/ZIP Co de Phone Number [facility] [address] [place] [address], [place] [phone] * Comprehensive metabolic panel (03/07/2025 4:56 PM EDT) [facility] Sodium 137 133 - 145 mmol/L LAB CHEMISTRY METHOD 03/07/2025 6:01 PM [facility] Potassium 3.8 3.5 - 5.5 mmol/L LAB CHEMISTRY METHOD 03/07/2025 6:01 PM [facility] Chloride 102 96 - 110 mmol/L LAB CHEMISTRY METHOD 03/07/2025 6:01 PM [facility] CO2 32 21 - 32 mmol/L LAB CHEMISTRY METHOD 03/07/2025 6:01 PM [facility] Anion Gap 3 3 - 11 LAB CHEMISTRY METHOD 03/07/2025 6:01 PM [facility] Glucose 86 70 - 100 mg/dL LAB CHEMISTRY METHOD 03/07/2025 6:01 PM [facility] BUN 9 5 - 25 mg/dL LAB CHEMISTRY METHOD 03/07/2025 6:01 PM [facility] Creatinine 0.84 0.70 - 1.30 mg/dL LAB CHEMISTRY METHOD 03/07/2025 6:01 PM [facility] eGFR 105 >=60 mL/min/1. 73m2 LAB CHEMISTRY METHOD 03/07/2025 6:01 PM [facility] Comment:Calculation based on the??Chronic Kidney Disease Epidemiology Collaboration (CKD-EPI) equation refit??without adjustment for race. BUN/Creatinine Ratio 10.7 LAB CHEMISTRY METHOD 03/07/2025 6:01 PM [facility] Calcium 9.3 8.5 - 10.5 mg/dL LAB CHEMISTRY METHOD 03/07/2025 6:01 PM [facility] AST (SGOT) 25 10 - 42 unit/L LAB CHEMISTRY METHOD 03/07/2025 6:01 PM [facility] ALT (SGPT) 34 10 - 60 unit/L LAB CHEMISTRY METHOD 03/07/2025 6:01 PM [facility] Alkaline Phosphatase 65 42 - 121 unit/L LAB CHEMISTRY METHOD 03/07/2025 6:01 PM EDT [facility] Total Protein 7.6 6.0 - 8.0 g/dL LAB CHEMISTRY METHOD 03/07/2025 6:01 PM EDT [facility] Albumin 4.0 3.2 - 5.0 g/dL LAB CHEMISTRY METHOD 03/07/2025 6:01 PM EDT [facility] Total Bilirubin 0.6 0.0 - 1.4 mg/dL LAB CHEMISTRY METHOD 03/07/2025 6:01 PM EDT [facility] Blood Venous blood specimen / Unknown Venipuncture / Unknown 03/07/2025 4:56 PM EDT 03/07/2025 5:09 PM EDT us Dread Singh MD LAB BLOOD ORDERABLES Final Res ult Performing Organization Address City/[facility]/ZIP Co de Phone Number [facility] [address] [place] [address], [place] [phone] * ECG 12 lead (03/07/2025 3:59 PM EDT) Ventricular Rate ECG 64 BPM [facility] Atrial Rate 64 BPM GEM[facility] P-R Interval 184 ms GEMUSE QRS Duration 98 ms GEMUSE Q-T Interval 418 ms GEMUSE QTc 431 ms GEMUSE P Wave Friendship 47 degrees GEMUSE R Friendship -28 degrees GEMUSE T Friendship 16 degrees GEMUSE ECG Interpretation Normal sinus rhythm Normal ECG When compared with ECG of 07-NOV-2004 12:25, Vent. rate has decreased BY ??51 BPM Confirmed by Chani CARRILLO JOHN ([id number]) on 03/08/2025 5:33:41 PM [facility] 03/07/2025 3:59 PM EDT 03/08/2025 5:33 PM EDT us Dread Singh MD ECG ORDERABLES Final Result Performing Organization Address City/[facility]/ZIP Co de Phone Number G[facility] from Last 3 Months Insurance MEDICARE [facility] Care Teams Monitor And Storage Bin Tender Relationship Specialty Start Date End Date Physician, No Pcp PCP - General 03/07/25
== END 2025-04-06 08:07 | disposition home or self-care (01) ==
LOC: HO.NEURO 08:06
PROVIDERS: PCP Family Medicine; Visit Provider Physician Assistant Medical
DX: R55 Syncope and collapse (principal)
CPT/HCPCS: 95816